=== PATIENT | male | born 1955 | race African-American/Black ===

== ENCOUNTER 2017-02-23 09:35 | Emergency (ER) | payer OTHER ==
[2017-02-23 09:50] VITALS: RESP 18; TEMP 98.2
--- NOTE | 2017-02-23 10:23 | ED ---
General Adult HPI - General Chief complaint: Recheck/Abnormal Lab/Rx Stated complaint: HTN Time Seen by Provider: 02/23/17 09:57 Source: patient, RN notes reviewed, old records reviewed Mode of arrival: ambulatory Limitations: no limitations - History of Present Illness Initial comments: 61-year-old male with history of hypertension presenting for high blood pressure. Patient states that he has been taking blood pressure medications for several years but has not been taking them for the past 3 months. He states he does take some natural supplements. States that over the past month he has been in the process of a divorce with his . He states he is very stressed out because of this. He states he's been with his the past 45 years and this was a surprise to him. States she's taken his blood pressure at home last few days and it's been very high. He denies any active symptoms at this time. States that he has had some soreness in his right shoulder over the past few weeks intermittently but believes this is secondary to working out. He denies any active chest pain or shortness breath. He denies any fevers or chills. He denies any headache visual changes. - Related Data Home Medications Medication Instructions Recorded Confirmed Aspirin EC [Ecotrin Low Dose] 81 mg PO DAILY 02/23/17 02/23/17 Aspirin EC [Ecotrin] 325 mg PO ONCE 02/23/17 02/23/17 Fish Oil/Dha/Epa [Fish Oil 1,200 3 cap PO DAILY 02/23/17 02/23/17 mg Fish Oil] Lisinopril [Zestril] 2.5 mg PO DAILY 02/23/17 02/23/17 Previous Rx's Medication Instructions Recorded ALPRAZolam [Xanax] 0.25 mg PO HS PRN #6 tab 02/23/17 Lisinopril-Hctz 10-12.5 mg 1 tab PO DAILY 30 Days 02/23/17 [Zestoretic 10-12.5] Allergies Allergy/AdvReac Type Severity Reaction Status Date / Time No Known Allergies Allergy Verified 02/23/17 10:10 Review of Systems ROS Statement: Those systems with pertinent positive or pertinent negative responses have been documented in the HPI. ROS Other: All systems not noted in ROS Statement are negative. Past Medical History Past Medical History: Hypertension Additional Past Medical History / Comment(s): sleep apnea History of Any Multi-Drug Resistant Organisms: None Reported Past Surgical History: No Surgical Hx Reported Past Psychological History: No Psychological Hx Reported Smoking Status: Never smoker Past Alcohol Use History: None Reported Past Drug Use History: None Reported General Exam - General Exam Comments Initial Comments: General: Awake and Alert. No acute distress. Does not appear acutely ill. Obese. Eyes: MARGARETH, EOM intact. No nystagmus. No scleral icterus. HENT: Atraumatic, normocephalic. Mucous membranes moist. Trachea midline. Neck: The neck is supple, there is no tenderness or JVD. Cardiovascular: Regular rate and rhythm. No murmur, rub, or gallop is appreciated. Distal pulses intact. Respiratory: Lungs are clear to auscultation bilaterally. No wheezes, rales, rhonchi. No respiratory distress. Gastrointestinal: Soft, Nontender. No rebound or guarding. Non-distended. No masses or organomegaly noted. No CVA tenderness. Musculoskeletal: Tenderness of the right shoulder to palpation and with range of motion. Otherwise MSK exam with no tenderness. Normal ROM. No gross deformity. No strength deficits. Neurological: A&Ox3. CN II-XII grossly intact, There are no obvious motor or sensory deficits. Coordination appears grossly intact. Speech is normal. Skin: Skin is warm and dry and no rashes or lesions are noted. Psychiatric: Cooperative, appropriate mood & affect, normal judgment. Limitations: no limitations Course Vital Signs 02/23/17 02/23/17 09:48 10:47 Temperature 98.2 F Pulse Rate 68 59 L Respiratory 18 18 Rate Blood Pressure 213/97 168/98 O2 Sat by Pulse 98 95 Oximetry EKG Findings - EKG Comments: EKG Findings:: EKG 10:28. Sinus rhythm. Rate 59. NE 162. QRS 108. QT/QTc 438/433. Normal axis. LVH. No STEMI. Nonspecific EKG. Medical Decision Making - Medical Decision Making 61-year-old male presenting for asymptomatic hypertension. Patient has not been taking his medication for the past 3 months. He is uncertain what type of medication he is on. Per review of his prior records he does have history of hypertension. It also appears that he had some borderline hyperglycemia as well. Given this is the case, I plan to start him on lisinopril/HCTZ, first dose given in the ER as well. EKG was performed without evidence of acute ischemic changes. Discussed importance of close follow-up with PCP for repeat BP and titration of his BP medication, as well as blood work to monitor renal function. Discussed working to reduce his stress in the setting of his current divorce situation. Rx for several rescue Xanax provided as he states he is mostly having difficulty sleeping. Recommend follow-up with therapy versus psychology as well. Discussed concerning signs and symptoms for immediate return to the ED. Patient is agreeable with plan and discharge home. - EKG Data -: EKG Interpreted by Me EKG shows normal: sinus rhythm Rate: normal Disposition Clinical Impression: Hypertension, Stress at home Disposition: HOME SELF-CARE Condition: Stable Instructions: Hypertension (ED) Prescriptions: ALPRAZolam [Xanax] 0.25 mg PO HS PRN #6 tab PRN Reason: rescue only for anxiety Lisinopril-Hctz 10-12.5 mg [Zestoretic 10-12.5] 1 tab PO DAILY 30 Days Referrals: None,Stated [Primary Care Provider] - 1-2 days Prabhakar Escalona MD [REFERRING] - 1-2 days Time of Disposition: 10:41
[2017-02-23] MEDS ORDERED: LISINOPRIL-HCTZ 10-12.5 MG 1 EACH TAB PO STA (10:36)
[2017-02-23 10:52] VITALS: BP 168/98; PULSE 59
== END 2017-02-23 11:12 | disposition home or self-care (01) ==
LOC: EC 09:35
DX: I10 Essential (primary) hypertension (principal); Z79.82 Long term (current) use of aspirin; Z79.899 Other long term (current) drug therapy
CPT/HCPCS: 93005; 99284

== ENCOUNTER 2017-05-03 16:55 | Inpatient (IN) | payer OTHER ==
[2017-05-03] MEDS ORDERED: ASPIRIN 81 MG CHEW PO STA (17:22)
[2017-05-03] MEDS ORDERED: SODIUM CHLORIDE 0.9% 1,000 ML IV STA (17:22)
--- NOTE | 2017-05-03 17:22 | ED ---
Chest Pain HPI - General Source: patient, RN notes reviewed Mode of arrival: wheelchair Limitations: no limitations - History of Present Illness MD Complaint: chest pain, other <Ryley Damian - Last Filed: 05/03/17 19:34> <Kenji Cerda - Last Filed: 05/03/17 20:31> - General Chief Complaint: Chest Pain Stated Complaint: Sweating, poss high blood pressure Time Seen by Provider: 05/03/17 17:19 - History of Present Illness Initial Comments: This is a 61-year-old male who presents with multiple issues this afternoon. He states he was sweaty and upper bowel pain pressure was markedly elevated at 107/134. He does stated he swallowed ago. He has some nausea vomiting or diarrhea. He states his or pertinent history of anything of hypertension. No recent changes medication. (Ryley Damian) - Related Data Home Medications Medication Instructions Recorded Confirmed Aspirin EC [Ecotrin Low Dose] 81 mg PO DAILY 02/23/17 05/03/17 [place] X L 2 cap PO DAILY 05/03/17 05/03/17 Previous Rx's Medication Instructions Recorded Lisinopril-Hctz 10-12.5 mg 1 tab PO DAILY 30 Days 02/23/17 [Zestoretic 10-12.5] Allergies Allergy/AdvReac Type Severity Reaction Status Date / Time No Known Allergies Allergy Verified 02/23/17 10:10 Review of Systems ROS Other: All systems not noted in ROS Statement are negative. <Ryley Damian - Last Filed: 05/03/17 19:34> ROS Other: All systems not noted in ROS Statement are negative. <Kenji Cerda - Last Filed: 05/03/17 20:31> ROS Statement: Those systems with pertinent positive or pertinent negative responses have been documented in the HPI. EKG Findings - EKG Results: EKG: interpreted by ERMD (Sinus tachycardia of 127 OH interval 140 QRS 94 QT since QTC of 322/[address] configuration.) <Ryley Damian - Last Filed: 05/03/17 19:34> Past Medical History Past Medical History: Hypertension Additional Past Medical History / Comment(s): sleep apnea History of Any Multi-Drug Resistant Organisms: None Reported Past Surgical History: No Surgical Hx Reported Past Psychological History: No Psychological Hx Reported Smoking Status: Never smoker Past Alcohol Use History: None Reported Past Drug Use History: None Reported <Ryley Damian - Last Filed: 05/03/17 19:34> General Exam Limitations: no limitations General appearance: alert, anxious Head exam: Present: atraumatic, normocephalic, normal inspection Eye exam: Present: normal appearance, PERRL, EOMI. Absent: scleral icterus, conjunctival injection, periorbital swelling ENT exam: Present: normal exam, mucous membranes moist Neck exam: Present: normal inspection. Absent: tenderness, meningismus, lymphadenopathy Respiratory exam: Present: normal lung sounds bilaterally. Absent: respiratory distress, wheezes, rales, rhonchi, stridor Cardiovascular Exam: Present: normal rhythm, tachycardia, normal heart sounds. Absent: systolic murmur, diastolic murmur, rubs, gallop, clicks GI/Abdominal exam: Present: soft, tenderness (Mild epigastric tenderness and right upper quadrant tenderness), normal bowel sounds. Absent: distended, guarding, rebound, rigid Extremities exam: Present: normal inspection, full ROM, normal capillary refill. Absent: tenderness, pedal edema, joint swelling, calf tenderness Back exam: Present: normal inspection Neurological exam: Present: alert, oriented X3, CN II-XII intact Psychiatric exam: Present: normal affect, anxious Skin exam: Present: warm, dry, intact, normal color. Absent: rash <Ryley Damian - Last Filed: 05/03/17 19:34> <Kenji Cerda - Last Filed: 05/03/17 20:31> - General Exam Comments Initial Comments: This is a well-developed well-nourished awake alert oriented x 3 male (Ryley Damian) Course <Ryley Damian - Last Filed: 05/03/17 19:34> <Kenji Cerda - Last Filed: 05/03/17 20:31> Vital Signs 05/03/17 05/03/17 05/03/17 17:05 17:22 17:47 Temperature 98.5 F Pulse Rate 134 H 116 H Pulse Rate [ 124 H Gill Box Fixer ] Respiratory 18 Rate Blood Pressure 151/107 154/102 O2 Sat by Pulse 97 Oximetry 05/03/17 05/03/17 05/03/17 18:17 18:50 20:25 Temperature 98 F Pulse Rate 112 H 120 H 98 Pulse Rate [ [place] Box Fixer ] Respiratory 18 18 Rate Blood Pressure 162/99 168/105 148/90 O2 Sat by Pulse 98 98 100 Oximetry - Reevaluation(s) Reevaluation #1: 05/03/17 19:35 I did discuss the case with Dr. Weathers pending CAT scan results. Patient will be admitted. The case is endorsed to Dr. Cerda who will make the final disposition. (Ryley Damian) 05/03/17 20:29 CT angiogram of the aorta shows large fluid-filled stomach and could be related to gastroparesis or gastric outlet obstruction. CT [place] of the chest is negative for pulmonary embolism. There is mild aneurysm of the ascending aorta , 4.5 cm. Chest x-ray shows no acute process. Gallbladder ultrasound shows somewhat limited. No gallstones or dilated ducts. Patient reevaluated by myself, Dr. Cerda. Patient resting comfortably in bed. Patient states he is having discomfort from the upper abdomen up to his neck. Patient has had some symptoms since February. Patient updated on results and plan. Patient and family are both specifically updated on concerns for aortic aneurysm and need for close follow-up with this in the future. GI will also be consulted for concerns for gastric outlet obstruction. Patient states he has been losing weight over the past several months however is unclear how much. ( Kenji Cerda) Disposition <Ryley Damian - Last Filed: 05/03/17 19:34> Decision Time: 20:31 <Kenji Cerda - Last Filed: 05/03/17 20:31> Clinical Impression: Chest pain, Gastric outlet obstruction, Thoracic aortic aneurysm Disposition: ADMITTED IP TO THIS HOSP Referrals: Prabhakar Escalona MD [Primary Care Provider] - 1-2 days
[2017-05-03 17:49] LABS: Basophils % (A) 0 %; CH 30.3; Eosinophils % (A) 0 %; HCT 57.4 % (39.0-53.0); HDW 2.66; HGB 19.5 gm/dL (13.0-17.5); Luc # (Auto) 0.04; Luc % (Auto) 1; Lymphocytes # (A) 1.1 k/uL (1.0-4.8); Lymphocytes % (A) 12 %; MCH 29.5 pg (25.0-35.0); MCHC 33.9 g/dL (31.0-37.0); Mean Platelet Volume 7.9; Monocytes # (A) 0.2 k/uL (0-1.0); Monocytes % (A) 3 %; Neutrophils # (A) 7.2 k/uL (1.3-7.7); Neutrophils % (A) 84 %; RDW 13.2 % (11.5-15.5); WBC 8.6 k/uL (3.8-10.6); WBC (Perox) 9.27
--- NOTE | 2017-05-03 18:03 | US ---
EXAMINATION TYPE: US gallbladder DATE OF EXAM: 05/03/2017 COMPARISON: NONE CLINICAL HISTORY: Pain. RUQ pain EXAM MEASUREMENTS: Liver Length: 12.6 cm Gallbladder Wall: 0.3 cm CBD: 0.4 cm Right Kidney: 10.4 x 4.6 x 4.8 cm Incidental note is made of free fluid around liver. Pancreas: not visualized due to midline bowel gas Liver: left lobe not seen due to midline bowel gas, right lobe limited vis, can only use intercostal window. visualized portions wnl Gallbladder: No stones seen Evidence for sonographic Mcgraw's sign: Yes CBD: wnl Right Kidney: No hydronephrosis or masses seen IMPRESSION: Exam is limited slightly by bowel gas. No gallstones or dilated ducts. Ascites fluid is n oted.
[2017-05-03 18:08] LABS: INR 1.2 (<1.1); Partial Thromboplastin Time 28.7 sec (22.0-30.0); Prothrombin Time 12.2 sec (9.0-12.0)
[2017-05-03 18:12] LABS: ALT 20 U/L (21-72); AST 22 U/L (17-59); Alkaline Phosphatase 106 U/L (38-126); Amylase 41 U/L (30-110); Anion Gap 19 mmol/L; Blood Urea Nitrogen 19 mg/dL (9-20); Carbon Dioxide 23 mmol/L (22-30); Chloride 100 mmol/L (98-107); Creatine Kinase 64 U/L (55-170); Glucose 143 mg/dL (74-99); Non-African American GFR(MDRD) >60 (>60 ml/min/1.73 sqM); Potassium 4.2 mmol/L (3.5-5.1); Sodium 142 mmol/L (137-145); Total Bilirubin 1.1 mg/dL (0.2-1.3); Total Protein 8.3 g/dL (6.3-8.2)
[2017-05-03 18:23] LABS: Creatine Kinase MB 0.7 ng/mL (0.0-2.4); Troponin I <0.012 ng/mL (0.000-0.034)
--- NOTE | 2017-05-03 18:23 | XR ---
EXAMINATION TYPE: XR chest 2V DATE OF EXAM: 05/03/2017 COMPARISON: 01/17/2009 HISTORY: Abdominal pain TECHNIQUE: Frontal and lateral views of the chest are obtained. FINDINGS: Heart is normal. Lungs are clear. Costophrenic angles are clear. There are chest leads. Th oracic aorta is atheromatous. IMPRESSION: No active cardiopulmonary disease. Normal heart. No change.
[2017-05-03] MEDS ORDERED: RX INFO: IV CONTRAST WAS GIVEN 1 EACH MISC MISCELLANE PRN (18:27)
--- NOTE | 2017-05-03 19:44 | CT ---
EXAMINATION TYPE: CT angio chest DATE OF EXAM: 05/03/2017 7:37 PM COMPARISON: NONE HISTORY: Chest pain and difficulty breathing. CT DLP: 416.10 mGycm Automated exposure control for dose reduction was used. CONTRAST: CTA scan of the thorax is performed with IV Contrast, patient injected with 100 mL of Omnipaque 350, pulmonary embolism protocol. There are 3-D post processed images.. FINDINGS: There is mild subsegmental atelectasis at the lung bases. There is no pleural effusion. There is asci dev fluid noted. There is no pericardial effusion. I see no filling defects in the pulmonary arteries. There are no hilar masses. There is no mediastina l adenopathy. There is mild aneurysm of the ascending aorta that measures up to 4.5 cm. There is no s ign of dissection. I see no bony destructive process. There is spurring in the lower thoracic spine. IMPRESSION: NO EVIDENCE OF PULMONARY EMBOLISM. ASCITES. MILD ANEURYSM OF ASCENDING AORTA.
--- NOTE | 2017-05-03 19:52 | CT ---
EXAMINATION TYPE: CT angio thoracic/abd aorta DATE OF EXAM: 05/03/2017 COMPARISON: NONE HISTORY: Chest pain and difficulty breathing. CT DLP: 655.20 mGycm. Automated Exposure Control for Dose Reduction was Utilized. CONTRAST: CT scan of the thorax, abdomen and pelvis is performed with IV Contrast, patient injected with 100 mL of Omnipaque 350. FINDINGS: There are 3-D post processed images. There is mild aneurysm of the ascending aorta that measures up t o 4.5 cm. There is no evidence of aortic dissection. There is patency of the celiac artery and the gould perior mesenteric artery. There is bilateral patency of the renal arteries. Kidneys have normal size and contour. There is no hydronephrosis. There is mild to moderate ascites fluid noted. I see no retr operitoneal adenopathy. Spleen shows no focal defect. I see no focal liver defect. Gallbladder has no rmal size. There is bilateral patency of the iliac arteries. There is no evidence of stenosis in the visualized arteries. Bladder distends smoothly. There is no sign of a pelvic mass. There is a large fluid-filled stomach. There is no sign of a hernia. I see no bony destructive process. There is narrowing of L5-S 1 disc space. There is some prostatic calcification. There are multiple diverticula in the colon. I s ee no sign of diverticulitis. There is some high density tiny foci in the gastric antrum that could b e ingested medication. IMPRESSION: There is 4.5 cm aneurysm of the ascending aorta. No evidence of aortic dissection. No harris dence of hemodynamically significant stenosis. Moderate ascites fluid. Large fluid-filled stomach could relate to gastroparesis or gastric outlet obstruction. Colonic diverticulosis without sign of diverticulitis.
[2017-05-03] MEDS ORDERED: NITROGLYCERIN SL TABS 0.4 MG TAB SUBLINGUAL PRN (20:31)
[2017-05-03] MEDS ORDERED: PANTOPRAZOLE 40 MG/10 ML VIAL IVP STA (20:41)
[2017-05-03 21:10] VITALS: BMI 32.1
[2017-05-03 23:49] LABS: Creatine Kinase 52 U/L (55-170)
[2017-05-04 00:01] LABS: Creatine Kinase MB 0.7 ng/mL (0.0-2.4); Troponin I <0.012 ng/mL (0.000-0.034)
[2017-05-04 06:34] LABS: Cholesterol 139 mg/dL (<200); HDL Cholesterol 45 mg/dL (40-60); Triglycerides 59 mg/dL (<150)
[2017-05-04 07:00] LABS: Creatine Kinase MB 0.9 ng/mL (0.0-2.4); Troponin I 0.025 ng/mL (0.000-0.034)
[2017-05-04] MEDS: PANTOPRAZOLE 40 MG/10 ML VIAL IVP SCH (08:50)
--- NOTE | 2017-05-04 08:59 | P.GSCN ---
History of Present Illness Consult date: 05/04/17 Reason for Consult: Thoracic aortic aneurysm, treatment recommendations. Requesting physician: Kenji Cerda History of present illness: This 61-year-old gentleman presented to the emergency room last night with complaints of abdominal pain which goes all the way up to his neck area. He states that he has had this before and thought it was food poisoning. Nothing he has done has relieved his symptoms, walking and movement have made it worse. He denies nausea, vomiting, diarrhea. He states his only known history is hypertension which he is on medication for. His workup in the emergency room included a gallbladder ultrasound which did not demonstrate any gallstones or dilated ducts, a CT Angio of the chest which demonstrated no pulmonary embolism but a mild aneurysm of the ascending aorta, and a CT Angio of the thoracic/ abdominal aorta with reported findings of a 4.5 cm aneurysm of the ascending aorta as measured by radiology without evidence of dissection. Dr. Robles from cardiothoracic surgery was consulted regarding this aneurysm for treatment recommendations. Review of Systems 14 point review systems was completed and was negative except as noted. - Constitutional Reports sweats, Reports weight loss - Cardiovascular Reports high blood pressure - Respiratory Reports sleep apnea - Gastrointestinal Reports belching Past Medical History Past Medical History: Hypertension, Osteoarthritis (OA), Sleep Apnea/CPAP/BIPAP Additional Past Medical History / Comment(s): sleep apnea History of Any Multi-Drug Resistant Organisms: None Reported Past Surgical History: No Surgical Hx Reported Past Anesthesia/Blood Transfusion Reactions: No Reported Reaction Past Psychological History: No Psychological Hx Reported Smoking Status: Former smoker - Past Family History Father Family Medical History: Congestive Heart Failure (CHF) Mother Family Medical History: Congestive Heart Failure (CHF) Medications and Allergies Home Medications Medication Instructions Recorded Confirmed Type Aspirin EC [Ecotrin Low Dose] 81 mg PO DAILY 02/23/17 05/03/17 History [place] X L 2 cap PO DAILY 05/03/17 05/03/17 History Allergies Allergy/AdvReac Type Severity Reaction Status Date / Time No Known Allergies Allergy Verified 02/23/17 10:10 Surgical - Exam Vital Signs Temp Pulse Resp BP Pulse Ox 98.5 F 134 H 18 151/107 97 05/03/17 17:05 05/03/17 17:05 05/03/17 17:05 05/03/17 17:05 05/03/17 17:05 - General well developed, well nourished, no distress, no pain - Eyes PERRL, normal ocular movement - ENT no hearing loss - Neck trachea midline - Respiratory normal expansion, normal respiratory effort, clear to auscultation - Cardiovascular Rhythm: regular Heart Sounds: normal: S1, S2 - Abdomen Abdomen: soft, non tender, bowel sounds - Genitourinary Deferred - Rectum Deferred - Integumentary no rash - Neurologic normal coordination, normal sensation - Musculoskeletal normal gait, normal posture - Psychiatric oriented to time, oriented to person, oriented to place, speech is normal, memory intact Results - Labs 05/03/17 17:23 05/03/17 17:23 Abnormal Lab Results - Last 24 Hours (Table) 05/03/17 05/03/17 05/03/17 Range/Units 17:23 17:23 17:23 RBC 6.60 H (4.30-5.90) m/uL Hgb 19.5 H (13.0-17.5) gm/dL Hct 57.4 H (39.0-53.0) % PT 12.2 H (9.0-12.0) sec D-Dimer 9.44 H (<0.60) mg/L FEU Glucose 143 H (74-99) mg/dL ALT 20 L (21-72) U/L Total Creatine Kinase (55-170) U/L Total Protein 8.3 H (6.3-8.2) g/dL 05/03/17 05/04/17 Range/Units 23:08 05:58 RBC (4.30-5.90) m/uL Hgb (13.0-17.5) gm/dL Hct (39.0-53.0) % PT (9.0-12.0) sec D-Dimer (<0.60) mg/L FEU Glucose (74-99) mg/dL ALT (21-72) U/L Total Creatine Kinase 52 L 51 L (55-170) U/L Total Protein (6.3-8.2) g/dL Diabetes panel 05/03/17 05/04/17 Range/Units 17:23 05:58 Sodium 142 (137-145) mmol/L Potassium 4.2 (3.5-5.1) mmol/L Chloride 100 (98-107) mmol/L Carbon Dioxide 23 (22-30) mmol/L BUN 19 (9-20) mg/dL Creatinine 1.09 (0.66-1.25) mg/dL Glucose 143 H (74-99) mg/dL Calcium 10.0 (8.4-10.2) mg/dL AST 22 (17-59) U/L ALT 20 L (21-72) U/L Alkaline Phosphatase 106 (38-126) U/L Total Protein 8.3 H (6.3-8.2) g/dL Albumin 4.8 (3.5-5.0) g/dL Triglycerides 59 (<150) mg/dL HDL Cholesterol 45 (40-60) mg/dL Calcium panel 05/03/17 Range/Units 17:23 Calcium 10.0 (8.4-10.2) mg/dL Albumin 4.8 (3.5-5.0) g/dL Pituitary panel 05/03/17 Range/Units 17:23 Sodium 142 (137-145) mmol/L Potassium 4.2 (3.5-5.1) mmol/L Chloride 100 (98-107) mmol/L Carbon Dioxide 23 (22-30) mmol/L BUN 19 (9-20) mg/dL Creatinine 1.09 (0.66-1.25) mg/dL Glucose 143 H (74-99) mg/dL Calcium 10.0 (8.4-10.2) mg/dL Adrenal panel 05/03/17 Range/Units 17:23 Sodium 142 (137-145) mmol/L Potassium 4.2 (3.5-5.1) mmol/L Chloride 100 (98-107) mmol/L Carbon Dioxide 23 (22-30) mmol/L BUN 19 (9-20) mg/dL Creatinine 1.09 (0.66-1.25) mg/dL Glucose 143 H (74-99) mg/dL Calcium 10.0 (8.4-10.2) mg/dL Total Bilirubin 1.1 (0.2-1.3) mg/dL AST 22 (17-59) U/L ALT 20 L (21-72) U/L Alkaline Phosphatase 106 (38-126) U/L Total Protein 8.3 H (6.3-8.2) g/dL Albumin 4.8 (3.5-5.0) g/dL - Imaging Chest x-ray: image reviewed CT scan - chest: image reviewed Assessment and Plan (1) Hypertension Status: Acute (2) Obstructive sleep apnea Status: Acute (3) Osteoarthritis Status: Acute (4) Thoracic aortic aneurysm Status: Acute Plan: The patient was seen and examined at the bedside. Chart/diagnostics were reviewed. We ordered an echocardiogram to rule out a bicuspid aortic valve secondary to ascending aortic dilatation and his history of hypertension. Further, we recommend beta javy therapy and yearly CT scans of the chest to follow the size of the ascending aorta. Medical management per primary care service. Further recommendations following results of echocardiogram. Thank you for this consult. We look forward to working with you in the care of your patient. Time with Patient: Greater than 30
--- NOTE | 2017-05-04 11:13 | ECHOF ---
Referral Reason:rule out bicuspid aortic valve MEASUREMENTS -------- HEIGHT: 152.4 cm WEIGHT: 89.8 kg BP: IVSd: 1.3 cm (0.6 - 1.1) LVIDd: 3.8 cm (3.9 - 5.3) LVPWd: 1.2 cm (0.6 - 1.1) IVSs: 1.4 cm LVIDs: 3.4 cm LVPWs: 1.4 cm LA Diam: 4.3 cm (2.7 - 3.8) LAESV Index (A-L): 32.63 ml/m Ao Diam: 3.4 cm (2.0 - 3.7) AV Cusp: 2.3 cm (1.5 - 2.6) LA Diam: 3.8 cm (2.7 - 3.8) MV EXCURSION: 17.007 mm (> 18.000) MV EF SLOPE: 66 mm/s (70 - 150) EPSS: 0.3 cm MV E Dwight: 0.59 m/s MV DecT: 190 ms MV A Dwight: 0.67 m/s MV E/A Ratio: 0.88 AR PHT: 574 ms RAP: 5.00 mmHg RVSP: 20.23 mmHg FINDINGS -------- Sinus rhythm. This was a technically adequate study. There is mild concentric left ventricular hypertrophy. Overall left ventricular systolic function is low-normal with, an EF between 50 - 55 %. The right ventricle is normal in size. The left atrium is moderately dilated. The right atrial size is normal. There is mild aortic regurgitation. Mild mitral annular calcification present. Mild mitral regurgitation is present. Mild tricuspid regurgitation present. There is no evidence of pulmonary hypertension. The right ventricular systolic pressure, as measured by Doppler, is 20.23mmHg. There is no pulmonic regurgitation present. The aortic root size is normal. There is no pericardial effusion. CONCLUSIONS -------- 1. There is mild concentric left ventricular hypertrophy. 2. There is no pulmonic regurgitation present. 3. The aortic root size is normal. 4. There is no pericardial effusion. 5. Overall left ventricular systolic function is low-normal with, an EF between 50 - 55 %. 6. The left atrium is moderately dilated. 7. There is mild aortic regurgitation. 8. Mild mitral annular calcification present. 9. Mild mitral regurgitation is present. 10. Mild tricuspid regurgitation present. 11. There is no evidence of pulmonary hypertension. 12. The right ventricular systolic pressure, as measured by Doppler, is 20.23mmHg. MAT PACKER: Dorcas Guillaume RDCS
--- NOTE | 2017-05-04 12:43 | CONS ---
DATE OF CONSULTATION: Mr. Desai is a 61-year-old gentleman who is seen for cardiac evaluation. Patient's medical records reviewed. Patient primarily came with abdominal pain, chest pain. He thought his blood pressure is elevated. Patient gives a history that he has been having abdominal pain. He did not have any nausea, vomiting or diarrhea. He has not had any bowel movements. Patient also complained of some chest pain on the right side. Patient had multiple tests done in the emergency room including the CT scan of the abdomen and the chest. Patient was found to have dilated ascending aorta of about 4.5 cm. There was no evidence of a dissection. Patient has a dilatation of the stomach with a possibility of gastric outlet obstruction. Patient denies any chest pain. He had some mild abdominal discomfort. Denies any nausea or vomiting. Patient denies any fever or chills. Patient has a history of hypertension, but he stopped taking all his medications because he could not afford it. Home medications include aspirin, [place] XL 2 capsules daily, lisinopril but patient is not taking his medications. Past medical history includes history of hypertension, history of sleep apnea. No history of any other major surgeries. SMOKING HISTORY: Patient was never a smoker. Physical examination at present reveals a 61-year-old gentleman who does not appear to be in any acute distress. In the emergency room, patient was afebrile and he was tachycardic with a blood pressure of 150/107 mmHg. HEENT examination is negative. Neck is supple. There is no increase in jugular venous pressure. Both the carotid pulses are felt. There is no bruit. Chest is symmetrical. HEART: The PMI is not felt. First and second heart sounds are normal. There is no evidence of any murmur. Lungs are clinically clear to auscultation and percussion. Abdomen is soft. There is some mild tenderness present, bowel sounds are present. EXTREMITIES: Peripheral pulsations are 2+. EKG shows normal sinus rhythm without any acute ischemic changes. Patient's cardiac enzymes are normal. Patient's d-dimer test was 9.44. CT of the chest does not show any evidence of pulmonary embolism. Patient's troponins are normal. BNP level is 438. Echocardiogram reveals a normal left ventricular systolic function. FINAL IMPRESSION: 1. This patient is primarily admitted with vague abdominal pain and chest pain. Patient has evidence of gaps possible gastric outlet obstruction versus gastroparesis. Patient's chest pains are atypical. EKGs and cardiac enzymes are normal. 2. After the patient's condition improve, we would recommend patient to be evaluated with a stress test. Patient's echocardiogram is normal. History of high blood pressure. Currently blood pressure is normal. Patient should be put on the blood pressure medications after his condition improves. 3. Ascending aortic aneurysm of 4.5 cm, which is asymptomatic at present. Thank you very much for letting me participate in the care of this nice gentleman.
[2017-05-04] MEDS: ASPIRIN 325 MG TAB PO SCH (14:15)
--- NOTE | 2017-05-04 16:35 | CONS ---
DATE OF CONSULTATION: 05/04/2017 REASON FOR CONSULTATION: Epigastric pain. HISTORY OF PRESENT ILLNESS: The patient is a 61-year-old pleasant white male was admitted to the hospital because of acute onset of severe epigastric pain radiating to the lower abdomen and into the chest and shoulders since Thursday. He had a similar episode on Mother's Day about 2 months ago lasted for 2 days and resolved. He had another episode last month and symptoms resolved again. This time the pain continued to progressively get worse and hence came to the emergency room. He had a CT of the chest done, which showed a 4 cm thoracic aneurysm and also dilated stomach fluid filled and possibility of gastric outlet obstruction being suggested by the radiologist and hence, we are consulted in regards to this issue. The patient has been having intermittent symptoms for the last few months' duration. In between the episodes he usually does well. No prior history of peptic ulcer disease or recent NSAID use. Weight loss of about 10 pounds but he is going through a tough divorce recently. He denies any endoscopic intervention in the past. He usually has regular bowel movements, but for the last 3 days he has been constipated. PAST MEDICAL HISTORY: Significant for hypertension. Medications at home include: 1. Aspirin. 2. Lisinopril. 3. [place]-3 fatty acids. ALLERGIES: No known drug allergies. SOCIAL HISTORY: No smoking. No alcohol use. FAMILY HISTORY: Unremarkable other than sister having hypertension. PAST SURGICAL HISTORY: None. REVIEW OF SYSTEMS: CARDIOPULMONARY: He did have some chest pain yesterday but no shortness of breath. GENITOURINARY: No dysuria or hematuria. MUSCULOSKELETAL: Unremarkable. SKIN: Unremarkable. ENDOCRINE: Unremarkable. PSYCHIATRIC: Unremarkable. NEUROLOGY: Unremarkable. ENT/vision: Unremarkable. CONSTITUTIONAL: No recent weight loss. No fevers, chills or night sweats. On physical examination, he appears comfortable in no apparent distress. Vitals signs are stable. Blood pressure is 130/86, pulse rate 85, temperature 98. HEENT examination unremarkable. Conjunctivae pink. Sclerae anicteric. Oral cavity, no lesions. NECK: No JVD or lymph node enlargement. Chest was clear to auscultation. HEART: Regular rate and rhythm. ABDOMEN: Soft. Bowel sounds are positive. Mild tenderness in the epigastric area. No organomegaly. EXTREMITIES: No pedal edema. SKIN: No rashes. NEURO: Alert and oriented x2. No focal deficits. LABS: CBC with differential count showed a WBC 8.6, hemoglobin 19.5, platelets are normal. PT and INR within normal limits. ALT, AST, T-bili alk phos is normal. Amylase and lipase are normal. IMPRESSION: This is a patient who presents with intermittent episodes of epigastric pain on and off for the last 2 months' duration. This episode of pain started 2 days ago when he came into the emergency room. CT of the chest showed dilated stomach fluid filled and possibility of gastric outlet obstruction being suggested. No prior history of peptic ulcer disease. No recent NSAID use. No prior history of endoscopy in the past. RECOMMENDATIONS: 1. Continue with IV Protonix. 2. Start him on a clear liquid diet. 3. We will proceed with an upper endoscopy to investigate this further. 4. I discussed with the patient risks, benefits and complications and he is agreeable to it. Thank you for this consultation.
--- NOTE | 2017-05-04 18:55 | P.HPIM ---
History of Present Illness H&P Date: 05/04/17 Chief Complaint: Epigastric pain 61-year-old gentleman with history of hypertension comes in the hospital with this episode of severe epigastric pain that has radiated to his shoulders with an episode of diaphoresis. Patient has a history of essential hypertension has' s concerns over coronary artery disease hence came to the hospital for ongoing care EKG did not reveal any ST-T wave changes Initial troponin was negative However patient underwent workup which showed a thoracic aneurysm around 4.5 cm denies having any history of smoking Patient has had epigastric pain for a few months now has had these episodes were has significant amount of abdominal pain associated with some nausea there were never any episodes of vomiting that were reported A computed tomography scan incidentally also found a dilated stomach with fluid and concern for an outlet obstruction Patient has had a screening colonoscopy. No recent unintentional weight loss is reported No dark or bloody stools are reported Review of Systems All systems: negative (Noted in HPI) Past Medical History Past Medical History: Hypertension, Osteoarthritis (OA), Sleep Apnea/CPAP/BIPAP Additional Past Medical History / Comment(s): sleep apnea History of Any Multi-Drug Resistant Organisms: None Reported Past Surgical History: No Surgical Hx Reported Past Anesthesia/Blood Transfusion Reactions: No Reported Reaction Past Psychological History: No Psychological Hx Reported Smoking Status: Former smoker - Past Family History Father Family Medical History: Congestive Heart Failure (CHF) Mother Family Medical History: Congestive Heart Failure (CHF) Medications and Allergies Home Medications Medication Instructions Recorded Confirmed Type Aspirin EC [Ecotrin Low Dose] 81 mg PO DAILY 02/23/17 05/03/17 History [place] X L 2 cap PO DAILY 05/03/17 05/03/17 History Allergies Allergy/AdvReac Type Severity Reaction Status Date / Time No Known Allergies Allergy Verified 02/23/17 10:10 Physical Exam Vitals: Vital Signs Temp Pulse Pulse Pulse Resp BP BP 05/04/17 16:00 98.1 F 68 18 125/78 05/04/17 12:00 97.2 F L 74 18 137/78 05/04/17 08:00 96.8 F L 64 16 131/80 05/04/17 04:00 98 F 85 16 126/83 05/04/17 00:00 98 F 92 16 05/03/17 21:14 98 F 117 H 16 05/03/17 20:49 90 18 142/60 05/03/17 20:31 05/03/17 20:25 98 F 98 18 148/90 BP Pulse Ox 05/04/17 16:00 99 05/04/17 12:00 98 05/04/17 08:00 98 05/04/17 04:00 98 05/04/17 00:00 136/93 100 05/03/17 21:14 128/89 98 05/03/17 20:49 100 05/03/17 20:31 98 05/03/17 20:25 100 Intake and Output 05/04/17 05/04/17 05/04/17 06:59 14:59 22:59 Intake Total 850 160 Output Total 400 175 Balance 850 -400 -15 Intake: IV 850 160 Sodium Chloride 0.9% 1, 850 000 ml @ 100 mls/hr IV . Q10H STA Rx#:[id number] saline 160 Output: Urine 400 175 Other: Voiding Method Urinal # Voids 1 Weight 90.2 kg Epigastric pain is reported no rebound tenderness Gen. appearance alert oriented 3 does not appear to be in distress Lungs good air movement clear to auscultation no rhonchi wheezing or crackles Heart S1-S2 heard regular rate and rhythm no murmurs appreciated Neuro no focal motor or sensory deficits noted Skin normal abnormalities noted Results CBC & Chem 7: 05/03/17 17:23 05/03/17 17:23 Labs: Abnormal Lab Results - Last 24 Hours (Table) 05/03/17 05/04/17 Range/Units 23:08 05:58 Total Creatine Kinase 52 L 51 L (55-170) U/L Assessment and Plan Plan: #1 epigastric pain with gastric outlet obstruction likely due to a gastric ulcer ? #2 atypical chest pain #3 thoracic aortic aneurysm #4 Erythrocytosis #5 essential hypertension Plan If patient's hemoglobin appears to be elevated tomorrow, we'll obtain a MEGAN level. Investigated erythrocytosis Patient will will need to be on high-dose aspirin however with some concern for gastric ulcer will hold off on a The thoracic aneurysm can be monitored outpatient basis Echocardiogram did not reveal wall motion abdomen is EGD tomorrow as planned by gastroneurology this was discussed with the gastroneurologist as well Patient's blood pressures are stable at this time
[2017-05-05 06:48] LABS: ALT 28 U/L (21-72); AST 20 U/L (17-59); Alkaline Phosphatase 73 U/L (38-126); Anion Gap 9 mmol/L; Blood Urea Nitrogen 24 mg/dL (9-20); Calcium 8.9 mg/dL (8.4-10.2); Carbon Dioxide 29 mmol/L (22-30); Chloride 101 mmol/L (98-107); Glucose 78 mg/dL (74-99); Non-African American GFR(MDRD) >60 (>60 ml/min/1.73 sqM); Potassium 4.1 mmol/L (3.5-5.1); Sodium 139 mmol/L (137-145); Total Bilirubin 0.8 mg/dL (0.2-1.3)
[2017-05-05 06:50] LABS: Basophils # (A) 0.1 k/uL (0-0.2); Basophils % (A) 1 %; CH 29.5; CHCM 33.9; Eosinophils # (A) 0.2 k/uL (0-0.7); Eosinophils % (A) 3 %; HCT 42.4 % (39.0-53.0); HDW 2.67; Luc # (Auto) 0.17; Luc % (Auto) 3; Lymphocytes # (A) 2.4 k/uL (1.0-4.8); Lymphocytes % (A) 37 %; MCH 30.2 pg (25.0-35.0); MCHC 34.5 g/dL (31.0-37.0); MCV 87.4 fL (80.0-100.0); Mean Platelet Volume 7.6; Monocytes # (A) 0.4 k/uL (0-1.0); Monocytes % (A) 6 %; Neutrophils # (A) 3.3 k/uL (1.3-7.7); Neutrophils % (A) 50 %; RBC 4.85 m/uL (4.30-5.90); RDW 12.8 % (11.5-15.5); WBC 6.5 k/uL (3.8-10.6); WBC (Perox) 6.98
[2017-05-05 06:56] LABS: HGB 14.6 gm/dL (13.0-17.5)
[2017-05-05] MEDS: PANTOPRAZOLE 40 MG/10 ML VIAL IVP SCH (08:27)
--- NOTE | 2017-05-05 10:53 | P.PN ---
Subjective Principal diagnosis: Ascending aorta dilatation. Patient currently lying in bed in no acute distress. States he does have better than when he came in. Objective - Vital Signs Vital signs: Vital Signs Temp 97.2 F L 05/05/17 08:00 Pulse 57 L 05/05/17 08:00 Resp 16 05/05/17 08:00 BP 112/59 05/05/17 08:00 Pulse Ox 97 05/05/17 08:00 Intake & Output 05/04/17 05/05/17 05/05/17 18:59 06:59 18:59 Intake Total 160 200 Output Total 575 275 200 Balance -415 -75 -200 Weight 91.9 kg Intake: IV 160 200 0.9 @ 20 mls/hr 160 200 Output: Urine 575 275 200 Other: Voiding Method Urinal Toilet Urinal Urinal # Voids 1 1 - Constitutional General appearance: Present: cooperative, no acute distress - Respiratory Details: Lungs sounds diminished bilaterally. Respirations even and nonlabored. Currently on room air with oxygen saturation is 97%. - Cardiovascular Details: S1, S2 present. Regular rate and rhythm. - Gastrointestinal Gastrointestinal Comment(s): Abdomen soft, nontender, nondistended. Active bowel sounds 4 quadrants. - Genitourinary Genitourinary Comment(s): Continue to void clear, yellow urine. - Musculoskeletal Musculoskeletal: Present: gait normal, strength equal bilaterally - Psychiatric Psychiatric: Present: A&O x's 3, appropriate affect, intact judgment & insight - Allied health notes Allied health notes reviewed: nursing - Labs CBC & Chem 7: 05/05/17 05:48 05/05/17 05:48 Labs: Abnormal Lab Results - Last 24 Hours (Table) 05/05/17 Range/Units 05:48 BUN 24 H (9-20) mg/dL Total Protein 6.0 L (6.3-8.2) g/dL - Imaging and Cardiology Results of echocardiogram reviewed Assessment and Plan (1) Hypertension Status: Acute (2) Obstructive sleep apnea Status: Acute (3) Osteoarthritis Status: Acute (4) Thoracic aortic aneurysm Status: Acute Plan: The patient was seen and examined. Chart/diagnostics were reviewed. Results of echocardiogram reviewed, no evidence of bicuspid aortic valve. We recommend beta javy therapy and yearly CT scans of the chest to follow the size of the ascending aorta. Medical management per primary care service. No surgical intervention. We will see patient again if needed. Time with Patient: Greater than 30
[2017-05-05] MEDS ORDERED: LIDOCAINE 1% INJ 10MG/ML (20 ML MDV) ONE (10:58)
[2017-05-05] MEDS ORDERED: MIDAZOLAM 2 MG/2 ML VIAL ONE (10:58)
[2017-05-05] MEDS ORDERED: PROPOFOL 10 MG/ML 20 ML VIAL IV ONE (10:58)
[2017-05-05] MEDS ORDERED: SODIUM CHLORIDE 0.9% 1,000 ML IV ONE (11:14)
--- NOTE | 2017-05-05 11:22 | P.PCN ---
Date of Procedure: 05/05/17 Preoperative Diagnosis: Postoperative Diagnosis: Procedure(s) Performed: Procedure: Esophagogastroduodenoscopy and biopsy. Preoperative diagnosis: Recurrent epigastric pain and abnormal CT. Postoperative diagnosis: Mild gastritis and duodenitis but no ulcers or gastric outlet obstruction. Preparation and sedation: Was provided by anesthesia. Brief clinical history: The patient is a 61-year-old male who was admitted to the hospital because of recurrent epigastric pain. CT scan showed dilated stomach.This evaluation is to assess for gastric outlet obstruction. The details are summarized in the history and physical and dictated consultations and progress notes. Procedure: With the patient on his left lateral decubitus position and after informed consent and adequate sedation, I passed the Olympus-GIF 160 video upper endoscope through the cricopharyngeus down the esophagus. GE junction was around 40 cm from the incisors and there was no definite hiatal hernia. The esophagus did not show any erosions, ulcers, strictures or Phipps's esophagus. The endoscope was then passed into the stomach which was insufflated with air and inspected in detail including the retroflex view in the cardia. There was no retained food, fluid or bezoars. The antral mucosa shows mottling, erythema and submucosal hemorrhage. Pyloric channel did not show any ulcers or mechanical obstruction. Duodenal bulb, post bulbar area and descending duodenum showed mottling, erythema and submucosal hemorrhage but no ulcers or bleeding or any mechanical obstruction. I obtained multiple biopsies from the duodenum, antrum and esophagus then the endoscope was withdrawn. The patient tolerated the procedure well. Plan: The patient was reassured. Will await biopsy results and make further plans based on his course and biopsy results. Implants: Indications for Procedure: Operative Findings: Description of Procedure:
[2017-05-05] MEDS: ASPIRIN 325 MG TAB PO SCH (11:59)
[2017-05-05 13:46] VITALS: BP 140/92; PULSE 77; RESP 18; TEMP 98.1
--- NOTE | 2017-05-05 18:22 | P.DS ---
Providers Date of admission: 05/03/17 20:35 Attending physician: Vandana Weathers Consults: 05/03/17 20:31 Consult Physician Routine Consulting Provider: Collette Robles Consult Reason/Comments: thoracic aortic anneurysm Do you want consulting provider notified?: Yes Consult Physician Urgent Consulting Provider: Miguel Angel Hong Consult Reason/Comments: Gastric outlet obstruction and weight loss Do you want consulting provider notified?: Yes Consult Physician Urgent Consulting Provider: Tello Alvarez Consult Reason/Comments: Chest pain, thoracic aortic aneurysm Do you want consulting provider notified?: Yes Primary care physician: Pola Shanks [facility] Course: 61-year-old gentleman with history of hypertension comes in the hospital with this episode of severe epigastric pain that has radiated to his shoulders with an episode of diaphoresis. Patient has a history of essential hypertension has' s concerns over coronary artery disease hence came to the hospital for ongoing care EKG did not reveal any ST-T wave changes Initial troponin was negative However patient underwent workup which showed a thoracic aneurysm around 4.5 cm denies having any history of smoking Patient has had epigastric pain for a few months now has had these episodes were has significant amount of abdominal pain associated with some nausea there were never any episodes of vomiting that were reported A computed tomography scan incidentally also found a dilated stomach with fluid and concern for an outlet obstruction Patient has had a screening colonoscopy. No recent unintentional weight loss is reported No dark or bloody stools are reported 05/05/2002 Patient is doing well today Underwent EGD No nausea vomiting diarrhea is reported Epigastric pain is reported no rebound tenderness Gen. appearance alert oriented 3 does not appear to be in distress Lungs good air movement clear to auscultation no rhonchi wheezing or crackles Heart S1-S2 heard regular rate and rhythm no murmurs appreciated Neuro no focal motor or sensory deficits noted Skin normal abnormalities noted Assessment and Plan Plan: #1 epigastric pain with gastric outlet obstruction likely due to a gastritis. Patient is to follow-up with Dr. Rider in regards to biopsy results to rule out Helicobacter pylori infection will be discharged home on a PPI therapy #2 atypical chest pain, ACS is ruled out #3 thoracic aortic aneurysm, 4.3 cm is recommended to follow up with cardiology on an outpatient basis #4 Erythrocytosis Is due to dehydration is improved #5 essential hypertension. We'll discharge the patient on lisinopril 10 mg blood pressures were stable during the hospital stay Patient Condition at Discharge: Good Plan - Discharge Summary New Discharge Prescriptions: New Lisinopril [Prinivil] 10 mg PO DAILY #30 tab Omeprazole 40 mg PO DAILY #30 capsule. Continue Aspirin EC [Ecotrin Low Dose] 81 mg PO DAILY [place] X L 2 cap PO DAILY Discontinued Lisinopril-Hctz 10-12.5 mg [Zestoretic 10-12.5] 1 tab PO DAILY 30 Days Discharge Medication List Aspirin EC [Ecotrin Low Dose] 81 mg PO DAILY 02/23/17 [History] [place] X L 2 cap PO DAILY 05/03/17 [History] Lisinopril [Prinivil] 10 mg PO DAILY #30 tab 05/05/17 [Rx] Omeprazole 40 mg PO DAILY #30 capsule. 05/05/17 [Rx] Follow up Appointment(s)/Referral(s): Miguel Angel Hong MD [STAFF PHYSICIAN] - 1 Week Prabhakar Escalona MD [Primary Care Provider] - 05/08/17 (Office unavailable at this time, please call to schedule appointment. ) Karmen Horvath MD [STAFF PHYSICIAN] - 05/18/17 2:30 pm ([facility] office on [facility] ) Patient Instructions/Handouts: Chest Pain (DC), Upper Endoscopy (DC) Activity/Diet/Wound Care/Special Instructions: Cardiac diet. Discharge Disposition: HOME SELF-CARE
== END 2017-05-05 15:03 | disposition home or self-care (01) | DRG 382 ==
LOC: EC 16:55 → 6SEL 20:35 → 4MS4W 05-05 10:24
PROVIDERS: ADMIT Internal Medicine; ATTEND Internal Medicine
PROC: 0DB78ZX Excision of Stomach, Pylorus, Via Natural or Artificial Opening Endoscopic, Diagnostic (ICD-10-PCS; 2017-05-05)
PROC: 0DB58ZX Excision of Esophagus, Via Natural or Artificial Opening Endoscopic, Diagnostic (ICD-10-PCS; 2017-05-05)
PROC: 0DB98ZX Excision of Duodenum, Via Natural or Artificial Opening Endoscopic, Diagnostic (ICD-10-PCS; principal; 2017-05-05 13:20)
DX: K31.1 Adult hypertrophic pyloric stenosis (principal); I71.2 Thoracic aortic aneurysm, without rupture; I10 Essential (primary) hypertension; D75.1 Secondary polycythemia; E86.0 Dehydration; G47.33 Obstructive sleep apnea (adult) (pediatric); K29.70 Gastritis, unspecified, without bleeding; K29.80 Duodenitis without bleeding; R00.0 Tachycardia, unspecified; K59.00 Constipation, unspecified; R63.4 Abnormal weight loss; T46.4X6A Underdosing of angiotensin-converting-enzyme inhibitors, initial encounter; R07.89 Other chest pain; R61 Generalized hyperhidrosis; R19.7 Diarrhea, unspecified; M19.90 Unspecified osteoarthritis, unspecified site; R11.0 Nausea; Z91.120 Patient's intentional underdosing of medication regimen due to financial hardship; Z82.49 Family history of ischemic heart disease and other diseases of the circulatory system; Z63.5 Disruption of family by separation and divorce; Z79.82 Long term (current) use of aspirin; Z79.899 Other long term (current) drug therapy; Z87.891 Personal history of nicotine dependence; Z91.14 Patient's other noncompliance with medication regimen
CPT/HCPCS: 36415; 43239; 71020; 71275; 75635; 76705; 80053; 80061; 82150; 82550; 82553; 83690; 83735; 83880; 84484; 85025; 85379; 85610; 85730; 88305; 88342; 93005; 93306; 96360; 96361; 99285

== ENCOUNTER 2019-02-19 03:08 | Emergency (ER) | payer MEDICARE, OTHER ==
[2019-02-19 03:18] VITALS: RESP 16; TEMP 98.5
--- NOTE | 2019-02-19 03:32 | ED ---
General Adult HPI - General Chief complaint: Arrhythmia/Palpitations Stated complaint: Dental issues, heart racing Time Seen by Provider: 02/19/19 03:31 Source: patient Mode of arrival: ambulatory Limitations: no limitations - History of Present Illness Initial comments: Acute is a pleasant 63-year-old -[place] gentleman with a history of hypertension who presents the emergency department today for evaluation of dental pain and palpitations. Patient reports that he's been having pain in tooth #11 since Thursday. Patient reports he has contacted his dentist in the scheduled be seen on Thursday he believes he has a dental infection. Patient reports that the pain is progressively been worsening he has been unable to sleep due to the pain. Patient reports that he feels that the pain has caused his blood pressure to increase and he did feel his heart beating. Patient also reports that he only takes his medications for hypertension occasionally. He reports that he goes on and off of them because he doesn't want to be on medications all the time and he has read that blood pressure medications can be hard on the kidneys. Patient reports that while laying in bed he could feel his heart beat in his gums and his entire head is concerned his blood pressure was up and he couldn't stand the pain from his dental infection which prompted him come the ER for evaluation. Patient does note that he's been advised that he has a 4.5 cm aortic aneurysm in the past however he is not having any chest or abdominal pain or any shortness of breath. - Related Data Home Medications Medication Instructions Recorded Confirmed Aspirin EC [Ecotrin Low Dose] 81 mg PO DAILY 02/23/17 05/03/17 [place] X L 2 cap PO DAILY 05/03/17 05/03/17 Previous Rx's Medication Instructions Recorded Lisinopril [Prinivil] 10 mg PO DAILY #30 tab 05/05/17 Omeprazole 40 mg PO DAILY #30 capsule. 05/05/17 Lisinopril [Prinivil] 10 mg PO DAILY #30 tab 02/19/19 Penicillin V Potassium [Pen Vee K] 500 mg PO Q6H #28 tablet 02/19/19 Allergies Allergy/AdvReac Type Severity Reaction Status Date / Time No Known Allergies Allergy Verified 02/19/19 03:18 Review of Systems ROS Statement: Those systems with pertinent positive or pertinent negative responses have been documented in the HPI. ROS Other: All systems not noted in ROS Statement are negative. Past Medical History Past Medical History: Hypertension, Osteoarthritis (OA), Sleep Apnea/CPAP/BIPAP Additional Past Medical History / Comment(s): sleep apnea History of Any Multi-Drug Resistant Organisms: None Reported Past Surgical History: No Surgical Hx Reported Past Anesthesia/Blood Transfusion Reactions: No Reported Reaction Past Psychological History: No Psychological Hx Reported Smoking Status: Former smoker - Past Family History Father Family Medical History: Congestive Heart Failure (CHF) Mother Family Medical History: Congestive Heart Failure (CHF) General Exam - General Exam Comments Initial Comments: Physical Exam GENERAL: Patient is well-developed and well-nourished. Patient is nontoxic and well- hydrated and is in no distress. HENT: Normocephalic, Atraumatic. Poor dentition, missing multiple teeth There is gingival erythema surrounding tooth #11 concerning for dental infection EYES: PERRL, EOMI PULMONARY: Unlabored respirations. No audible rales rhonchi or wheezing was noted. CARDIOVASCULAR: There is a regular rate and rhythm without any murmurs gallops or rubs. ABDOMEN: Soft and nontender with normal bowel sounds. SKIN: Skin is clear with no lesions or rashes and otherwise unremarkable. : Deferred NEUROLOGIC: Patient is alert and oriented x3. Moving all extremities spontaneously MUSCULOSKELETAL: Normal extremities with adequate strength and full range of motion. No lower extremity swelling or edema. No calf tenderness. PSYCHIATRIC: Normal psychiatric evaluation. Limitations: no limitations Limitations: no limitations Course Vital Signs 02/19/19 02/19/19 02/19/19 03:14 03:30 03:40 Temperature 98.5 F Pulse Rate 104 H 96 Respiratory 16 17 Rate Blood Pressure 199/119 194/128 O2 Sat by Pulse 97 99 98 Oximetry 02/19/19 02/19/19 02/19/19 03:50 04:10 04:20 Temperature Pulse Rate 98 101 H 98 Respiratory 17 16 16 Rate Blood Pressure 191/125 191/126 196/123 O2 Sat by Pulse 98 98 99 Oximetry 02/19/19 02/19/19 02/19/19 04:40 05:00 05:10 Temperature Pulse Rate Respiratory Rate Blood Pressure 213/128 213/132 211/137 O2 Sat by Pulse 98 98 98 Oximetry EKG Findings - EKG Comments: EKG Findings:: EKG was obtained due to the complaint of palpitations. EKG obtained at 3:20 AM, rate is 102 rhythm is sinus there is a normal axis there are normal intervals, AL 174, QRS 108, QTC 477 there are no acute ST elevations or depressions there is no evidence of acute ischemia or infarction. Medical Decision Making - Medical Decision Making The patient was seen and evaluated history is obtained from the patient Patient with obvious dental infection and uncontrolled dental pain presenting with hypertension and palpitations Patient was noted to be hypertensive on arrival this is likely related to medication noncompliance and pain Labs, chest x-ray were ordered Oral antibiotics, Tylenol 3 and Lopressor were ordered was reevaluated after ceding medications he continues to have hypertension, clonidine was ordered Patients BP improving, still remains elevated but he remains asymptomatic. Will plan to discharge home, stressed to the patient the importance of compliance with antihypertensive medications. Patient expressed understanding and agreement with plan. - Lab Data Result diagrams: 02/19/19 03:44 02/19/19 03:44 Lab Results 02/19/19 02/19/19 02/19/19 Range/Units 03:44 03:44 03:44 WBC 8.6 (3.8-10.6) k/uL RBC 5.92 H (4.30-5.90) m/uL Hgb 16.9 (13.0-17.5) gm/dL Hct 51.3 (39.0-53.0) % MCV 86.7 (80.0-100.0) fL MCH 28.5 (25.0-35.0) pg MCHC 32.9 (31.0-37.0) g/dL RDW 12.6 (11.5-15.5) % Plt Count 193 (150-450) k/uL Neutrophils % 65 % Lymphocytes % 26 % Monocytes % 6 % Eosinophils % 1 % Basophils % 1 % Neutrophils # 5.6 (1.3-7.7) k/uL Lymphocytes # 2.3 (1.0-4.8) k/uL Monocytes # 0.5 (0-1.0) k/uL Eosinophils # 0.1 (0-0.7) k/uL Basophils # 0.1 (0-0.2) k/uL PT (9.0-12.0) sec INR (<1.2) APTT (22.0-30.0) sec Sodium 141 (137-145) mmol/L Potassium 4.1 (3.5-5.1) mmol/L Chloride 97 L (98-107) mmol/L Carbon Dioxide 32 H (22-30) mmol/L Anion Gap 12 mmol/L BUN 12 (9-20) mg/dL Creatinine 1.15 (0.66-1.25) mg/dL Est GFR (CKD-EPI)AfAm 80 (>60 ml/min/1.73 sqM) Est GFR (CKD-EPI)NonAf 69 (>60 ml/min/1.73 sqM) Glucose 117 H (74-99) mg/dL Calcium 10.3 H (8.4-10.2) mg/dL Magnesium 2.1 (1.6-2.3) mg/dL Total Bilirubin 0.9 (0.2-1.3) mg/dL AST 25 (17-59) U/L ALT 24 (21-72) U/L Alkaline Phosphatase 113 (38-126) U/L Troponin I (0.000-0.034) ng/mL NT-Pro-B Natriuret Pep 444 pg/mL Total Protein 9.0 H (6.3-8.2) g/dL Albumin 5.3 H (3.5-5.0) g/dL 02/19/19 02/19/19 Range/Units 03:44 03:44 WBC (3.8-10.6) k/uL RBC (4.30-5.90) m/uL Hgb (13.0-17.5) gm/dL Hct (39.0-53.0) % MCV (80.0-100.0) fL MCH (25.0-35.0) pg MCHC (31.0-37.0) g/dL RDW (11.5-15.5) % Plt Count (150-450) k/uL Neutrophils % % Lymphocytes % % Monocytes % % Eosinophils % % Basophils % % Neutrophils # (1.3-7.7) k/uL Lymphocytes # (1.0-4.8) k/uL Monocytes # (0-1.0) k/uL Eosinophils # (0-0.7) k/uL Basophils # (0-0.2) k/uL PT 11.1 (9.0-12.0) sec INR 1.1 (<1.2) APTT 27.9 (22.0-30.0) sec Sodium (137-145) mmol/L Potassium (3.5-5.1) mmol/L Chloride (98-107) mmol/L Carbon Dioxide (22-30) mmol/L Anion Gap mmol/L BUN (9-20) mg/dL Creatinine (0.66-1.25) mg/dL Est GFR (CKD-EPI)AfAm (>60 ml/min/1.73 sqM) Est GFR (CKD-EPI)NonAf (>60 ml/min/1.73 sqM) Glucose (74-99) mg/dL Calcium (8.4-10.2) mg/dL Magnesium (1.6-2.3) mg/dL Total Bilirubin (0.2-1.3) mg/dL AST (17-59) U/L ALT (21-72) U/L Alkaline Phosphatase (38-126) U/L Troponin I <0.012 (0.000-0.034) ng/mL NT-Pro-B Natriuret Pep pg/mL Total Protein (6.3-8.2) g/dL Albumin (3.5-5.0) g/dL Disposition Clinical Impression: Dental infection, HTN (hypertension), Non compliance w medication regimen Disposition: HOME SELF-CARE Instructions (If sedation given, give patient instructions): Toothache (ED) Prescriptions: Penicillin V Potassium [Pen Vee K] 500 mg PO Q6H #28 tablet Lisinopril [Prinivil] 10 mg PO DAILY #30 tab Is patient prescribed a controlled substance at d/c from ED?: No Referrals: None,Stated [Primary Care Provider] - 1-2 days
[2019-02-19] MEDS ORDERED: METOPROLOL TARTRATE 5 MG/5 ML VIAL IVP STA (04:12)
[2019-02-19] MEDS ORDERED: PENICILLIN V POTASSIUM 250 MG TAB PO STA ×2 (04:12→04:46)
[2019-02-19] MEDS ORDERED: ACET/COD 300 MG/30 MG STARTER PACK 6 TAB BTL PO STA (04:12)
[2019-02-19 04:30] LABS: Basophils # (A) 0.1 k/uL (0-0.2); Basophils % (A) 1 %; Eosinophils # (A) 0.1 k/uL (0-0.7); Eosinophils % (A) 1 %; HCT 51.3 % (39.0-53.0); HGB 16.9 gm/dL (13.0-17.5); Lymphocytes # (A) 2.3 k/uL (1.0-4.8); Lymphocytes % (A) 26 %; MCH 28.5 pg (25.0-35.0); MCHC 32.9 g/dL (31.0-37.0); MCV 86.7 fL (80.0-100.0); Mean Platelet Volume 7.6; Monocytes # (A) 0.5 k/uL (0-1.0); Monocytes % (A) 6 %; Neutrophils # (A) 5.6 k/uL (1.3-7.7); Neutrophils % (A) 65 %; Platelet Count 193 k/uL (150-450); RBC 5.92 m/uL (4.30-5.90); RDW 12.6 % (11.5-15.5); WBC 8.6 k/uL (3.8-10.6)
[2019-02-19 04:40] LABS: Albumin 5.3 g/dL (3.5-5.0); Calcium 10.3 mg/dL (8.4-10.2); Magnesium 2.1 mg/dL (1.6-2.3); Potassium 4.1 mmol/L (3.5-5.1); Total Bilirubin 0.9 mg/dL (0.2-1.3)
[2019-02-19 04:45] LABS: INR 1.1 (<1.2); Partial Thromboplastin Time 27.9 sec (22.0-30.0); Prothrombin Time 11.1 sec (9.0-12.0)
--- NOTE | 2019-02-19 04:52 | XR ---
EXAM: XR Chest, 2 Views CLINICAL HISTORY: ITS.REASON XR Reason: Chest Pain TECHNIQUE: Frontal and lateral views of the chest. COMPARISON: Chest CT and CXR dated 05/03/17 FINDINGS: Lungs: Unremarkable. No consolidation. Pleural space: Unremarkable. No pneumothorax. Heart: Unremarkable. No cardiomegaly. Mediastinum: Unremarkable. Bones/joints: Degenerative changes of the spine. Vasculature: Tortuous aorta. IMPRESSION: No acute findings.
[2019-02-19 05:15] VITALS: BP 211/137; PULSE 98
[2019-02-19] MEDS ORDERED: cloNIDine HCL 0.2 MG TAB PO STA (05:18)
== END 2019-02-19 06:51 | disposition home or self-care (01) ==
LOC: EC 03:08
DX: I10 Essential (primary) hypertension (principal); K04.7 Periapical abscess without sinus; Z91.14 Patient's other noncompliance with medication regimen; K08.409 Partial loss of teeth, unspecified cause, unspecified class; M19.90 Unspecified osteoarthritis, unspecified site; G47.30 Sleep apnea, unspecified; Z87.891 Personal history of nicotine dependence; Z79.82 Long term (current) use of aspirin; Z99.89 Dependence on other enabling machines and devices; Z82.49 Family history of ischemic heart disease and other diseases of the circulatory system
CPT/HCPCS: 36415; 71046; 80053; 83735; 83880; 84484; 85025; 85610; 85730; 96374; 99285

== ENCOUNTER 2020-03-24 20:51 | Emergency (ER) | payer MEDICARE ==
[2020-03-24] MEDS ORDERED: ONDANSETRON 4 MG/2 ML VIAL IVP STA (21:23)
[2020-03-24] MEDS ORDERED: SODIUM CHLORIDE 0.9% 500 ML 500 ML IV STA (21:23)
[2020-03-24] MEDS ORDERED: MORPHINE SULFATE 4 MG/ML SYRINGE IV STA (21:23)
[2020-03-24] MEDS ORDERED: LISINOPRIL 20 MG TAB PO STA (21:24)
--- NOTE | 2020-03-24 21:40 | ED ---
Abdominal Pain HPI - General Chief Complaint: Abdominal Pain Stated Complaint: LT flank pain Time Seen by Provider: 03/24/20 21:13 Source: patient, family Mode of arrival: wheelchair Limitations: no limitations - History of Present Illness Initial Comments: Patient is a 64-year-old male with history of kidney stones presenting to the emergency room with a chief complaint of kidney pain. Patient reports he started having left lower back pain that is radiating along the left flank region and into the groin slightly. Patient reports this started about 4 days ago with no significant improvement. Patient also reports she has history of hypertension and is prescribed antihypertensives but he refuses to take them. States he also started working out recently with home [employer] due to home [place]. Patient suspects the pain could also be related to that as well. Denies any nausea vomiting diarrhea. States he has normal bowel movements otherwise. Patient complaining of any chest pain, shortness of breath, headaches, blurry vision, one-sided weakness or paresthesias. Denies any hematuria, hematochezia or melena. - Related Data Home Medications Medication Instructions Recorded Confirmed Aspirin EC [Ecotrin Low Dose] 81 mg PO DAILY 02/23/17 05/03/17 [place] X L 2 cap PO DAILY 05/03/17 05/03/17 Previous Rx's Medication Instructions Recorded Lisinopril [Prinivil] 10 mg PO DAILY #30 tab 05/05/17 Omeprazole 40 mg PO DAILY #30 capsule. 05/05/17 Lisinopril [Prinivil] 10 mg PO DAILY #30 tab 02/19/19 Penicillin V Potassium [Pen Vee K] 500 mg PO Q6H #28 tablet 02/19/19 Lisinopril [Prinivil] 10 mg PO DAILY #30 tab 03/24/20 Allergies Allergy/AdvReac Type Severity Reaction Status Date / Time No Known Allergies Allergy Verified 02/19/19 03:18 Review of Systems ROS Statement: Those systems with pertinent positive or pertinent negative responses have been documented in the HPI. ROS Other: All systems not noted in ROS Statement are negative. Past Medical History Past Medical History: Hypertension, Osteoarthritis (OA), Sleep Apnea/CPAP/BIPAP Additional Past Medical History / Comment(s): sleep apnea History of Any Multi-Drug Resistant Organisms: None Reported Past Surgical History: No Surgical Hx Reported Past Anesthesia/Blood Transfusion Reactions: No Reported Reaction Past Psychological History: No Psychological Hx Reported Smoking Status: Former smoker Past Alcohol Use History: None Reported Past Drug Use History: None Reported - Past Family History Father Family Medical History: Congestive Heart Failure (CHF) Mother Family Medical History: Congestive Heart Failure (CHF) General Exam Limitations: no limitations General appearance: alert, in no apparent distress Head exam: Present: atraumatic, normocephalic, normal inspection Eye exam: Present: normal appearance, PERRL, EOMI Pupils: Present: normal accommodation ENT exam: Present: normal exam, normal oropharynx, mucous membranes moist Neck exam: Present: normal inspection, full ROM Respiratory exam: Present: normal lung sounds bilaterally. Absent: respiratory distress, wheezes Cardiovascular Exam: Present: regular rate, normal rhythm, normal heart sounds GI/Abdominal exam: Present: soft, tenderness (Mild left flank tenderness.). Absent: distended Extremities exam: Present: normal inspection, full ROM, other (+2 ulnar and radial pulses bilaterally. +2 dorsalis pedis and posterior tibialis bilaterally. 5/5 bilateral upper and lower extremity strength.) Back exam: Present: normal inspection, full ROM, tenderness, CVA tenderness (L) (Mild) Neurological exam: Present: alert, oriented X3 Psychiatric exam: Present: normal affect, normal mood Skin exam: Present: warm, dry, intact, normal color Course Vital Signs 03/24/20 03/24/20 03/24/20 21:04 22:29 23:22 Temperature 99.1 F 98.0 F Pulse Rate 96 71 Respiratory 17 19 Rate Blood Pressure 218/137 194/108 184/102 O2 Sat by Pulse 100 99 Oximetry Medical Decision Making - Medical Decision Making She is 64-year-old male presenting to emergency Department with chief complaint of kidney pain. Examination patient has mild left CVA tenderness with left lower quadrant pain. On initial evaluation patient appears to be hypertensive. He does have history of hypertension and is prescribed antihypertensive medication but refuses to take it. CBC is unremarkable. CMP does show de creased renal function but that appears to be his baseline. UA is not suggestive of a urinary tract infection or a renal stone. CT of abdomen and pelvis reveals sigmoid diverticulosis but no diverticulitis. No signs of nephrolithiasis. Patient was given 20 mg of lisinopril. His prescribed doses 10 mg. I had a long, thorough discussion regarding the importance of taking his antihypertensive medication. I gave a prescription of 30 tablets of lisinopril. I suspect the prolonged attention that is currently going untreated is causing the patient and organ damage and caused him to have kidney-like pain. Advised the patient to follow-up with primary care. Patient has no chest pain shortness of breath headaches blurry vision one-sided weakness or paresthesias. Return parameters were thoroughly discussed with patient was under standing and agreeable. Case discussed with physician. - Lab Data Result diagrams: 03/24/20 21:26 03/24/20 21:26 Lab Results 03/24/20 03/24/20 03/24/20 Range/Units 21:26 21:26 21:45 WBC 9.0 (3.8-10.6) k/uL RBC 5.32 (4.30-5.90) m/uL Hgb 15.4 (13.0-17.5) gm/dL Hct 46.6 (39.0-53.0) % MCV 87.6 (80.0-100.0) fL MCH 28.9 (25.0-35.0) pg MCHC 32.9 (31.0-37.0) g/dL RDW 12.9 (11.5-15.5) % Plt Count 205 (150-450) k/uL Neutrophils % 41 % Lymphocytes % 46 % Monocytes % 7 % Eosinophils % 3 % Basophils % 1 % Neutrophils # 3.7 (1.3-7.7) k/uL Lymphocytes # 4.2 (1.0-4.8) k/uL Monocytes # 0.6 (0-1.0) k/uL Eosinophils # 0.3 (0-0.7) k/uL Basophils # 0.1 (0-0.2) k/uL Sodium 139 (137-145) mmol/L Potassium 3.6 (3.5-5.1) mmol/L Chloride 96 L (98-107) mmol/L Carbon Dioxide 33 H (22-30) mmol/L Anion Gap 10 mmol/L BUN 21 H (9-20) mg/dL Creatinine 1.31 H (0.66-1.25) mg/dL Est GFR (CKD-EPI)AfAm 67 (>60 ml/min/1.73 sqM) Est GFR (CKD-EPI)NonAf 58 (>60 ml/min/1.73 sqM) Glucose 99 (74-99) mg/dL Calcium 10.1 (8.4-10.2) mg/dL Total Bilirubin 0.6 (0.2-1.3) mg/dL AST 32 (17-59) U/L ALT 18 (4-49) U/L Alkaline Phosphatase 82 (38-126) U/L Total Protein 8.1 (6.3-8.2) g/dL Albumin 4.7 (3.5-5.0) g/dL Amylase 79 (30-110) U/L Lipase 60 (23-300) U/L Urine Color Yellow Urine Appearance Clear (Clear) Urine pH 6.0 (5.0-8.0) Ur Specific [place] 1.016 (1.001-1.035) Urine Protein Trace H (Negative) Urine Glucose (UA) Negative (Negative) Urine Ketones Negative (Negative) Urine Blood Trace H (Negative) Urine Nitrite Negative (Negative) Urine Bilirubin Negative (Negative) Urine Urobilinogen <2.0 (<2.0) mg/dL Ur Leukocyte Esterase Small H (Negative) Urine RBC 4 (0-5) /hpf Urine WBC 3 (0-5) /hpf Ur Squamous Epith Cells <1 (0-4) /hpf Hyaline Casts 6 H (0-2) /lpf Urine Mucus Rare H (None) /hpf Disposition Clinical Impression: Asymptomatic hypertension, Left flank pain Disposition: HOME SELF-CARE Condition: Stable Additional Instructions: Take prescribed medication as directed. Follow up with the primary care. Return to emergency department if symptoms worsen. Prescriptions: Lisinopril [Prinivil] 10 mg PO DAILY #30 tab Is patient prescribed a controlled substance at d/c from ED?: No Referrals: None,Stated [Primary Care Provider] - 1-2 days Time of Disposition: 23:50
[2020-03-24 22:01] LABS: Basophils # (A) 0.1 k/uL (0-0.2); Basophils % (A) 1 %; Eosinophils # (A) 0.3 k/uL (0-0.7); Eosinophils % (A) 3 %; HCT 46.6 % (39.0-53.0); HGB 15.4 gm/dL (13.0-17.5); Lymphocytes # (A) 4.2 k/uL (1.0-4.8); Lymphocytes % (A) 46 %; MCH 28.9 pg (25.0-35.0); MCHC 32.9 g/dL (31.0-37.0); MCV 87.6 fL (80.0-100.0); Mean Platelet Volume 8.4; Monocytes # (A) 0.6 k/uL (0-1.0); Monocytes % (A) 7 %; Neutrophils # (A) 3.7 k/uL (1.3-7.7); Neutrophils % (A) 41 %; Platelet Count 205 k/uL (150-450); RBC 5.32 m/uL (4.30-5.90); RDW 12.9 % (11.5-15.5)
[2020-03-24 22:09] LABS: Appearance,Urine Clear (Clear); Bilirubin,Urine Negative (Negative); Blood,Urine Trace (Negative); Color,Urine Yellow; Glucose,Urine (UA) Negative (Negative); Hyaline Casts,Urine 6 /lpf (0-2); Ketones,Urine Negative (Negative); Leukocyte Esterase,Urine Small (Negative); Mucus,Urine Rare /hpf; Nitrite,Urine Negative (Negative); Protein,Urine Trace (Negative); RBC,Urine 4 /hpf (0-5); Specific Gravity,Urine 1.016 (1.001-1.035); Squamous Epithelial Cell,Urine <1 /hpf (0-4); Urobilinogen,Urine <2.0 mg/dL (<2.0); WBC,Urine 3 /hpf (0-5)
[2020-03-24 22:18] LABS: Albumin 4.7 g/dL (3.5-5.0); Calcium 10.1 mg/dL (8.4-10.2); Potassium 3.6 mmol/L (3.5-5.1); Total Bilirubin 0.6 mg/dL (0.2-1.3); Total Protein 8.1 g/dL (6.3-8.2)
[2020-03-24 22:30] VITALS: TEMP 98
[2020-03-24 23:23] VITALS: BP 184/102
--- NOTE | 2020-03-24 23:25 | CT ---
EXAMINATION TYPE: CT abdomen pelvis w con DATE OF EXAM: 03/24/2020 COMPARISON: None HISTORY: LLQ pain CT DLP: 1441.2 mGycm Automated exposure control for dose reduction was used. CONTRAST: Performed with IV Contrast, patient injected with 80mL mL of Isovue 300. Multiple axial sections were obtained from the diaphragm to the floor the pelvis with intravenous con trast. Lung bases are clear of infiltrate. There is no pleural effusion. Heart size is normal. There is no p ericardial effusion. Liver spleen pancreas stomach gallbladder appear normal. Bile ducts are not dilated. There is no adrenal mass. Kidneys show satisfactory contrast opacification. There is no hydronephrosi s. Ureters are not dilated. Bladder distends smoothly. There is no retroperitoneal adenopathy. There is no inguinal hernia. There is mild prostatic calcification. Delayed images show normal renal excretion. There are numerous sigmoid diverticula. There is no sign of diverticulitis. Appendix is posterior and appears normal. There is no mesenteric edema. There is no ascites or free air. There is no sign of a bowel obstruction. There is narrowing at L5-S1 disc space with spurring. Lumbar vertebra have normal alignment. There is no compression fracture. There is moderate hypertrophic osteoarthritis in the hip joints that is sli ghtly worse on the right side. No fracture seen. IMPRESSION: Sigmoid diverticulosis without diverticulitis. Moderately severe osteoarthritic changes in the hip joints. Normal appendix.
[2020-03-25 00:11] VITALS: PULSE 68; RESP 18
== END 2020-03-25 00:12 | disposition home or self-care (01) ==
LOC: EC 20:51
DX: I10 Essential (primary) hypertension (principal); R10.32 Left lower quadrant pain; K57.30 Diverticulosis of large intestine without perforation or abscess without bleeding; G47.30 Sleep apnea, unspecified; Z79.82 Long term (current) use of aspirin; Z99.89 Dependence on other enabling machines and devices; Z87.891 Personal history of nicotine dependence
CPT/HCPCS: 36415; 80053; 82150; 83690; 85025; 81001; 74177; 99284; 96374; 96375; J2270; J2405